=== PATIENT | female | born 1955 | race Caucasian/White ===

== ENCOUNTER → 2017-01-31 | Outpatient (CLI) | payer BC ==
[~2017-01-31] MED LIST: BACTRIM DS 8001 TAB PO; HYDROXYZINE 25M25 MG PO; IMITREX100 MG PO; PHENERGAN 25MG.25 M1 PO; PYRIDIUM 200MG200 MG PO; VIVELLE-DO0.1 MG/24 TD
[2017-01-31 10:05] LABS: HEMOGLOBIN 14.2 g/dL (12.2-16.2); LYMPH # 1.5 K/mm3 (0.7-4.5); LYMPH % 24.1 % (10-50.0)
[2017-01-31 11:49] LABS: BUN 14 mg/dL (7-18); GFR (ESTIMATED) 64 ML/MIN (59-)
[2017-02-01 08:41] LABS: Vitamin D, 25-Hydroxy 16.3 ng/mL (30.0-100.0)
[2017-02-01 16:36] LABS: Calcium, Ionized 5.4 mg/dL (4.5-5.6)
== END ==
LOC: LAB 09:45
PROVIDERS: Internal Medicine Adolescent Medicine
DX: E21.5 Disorder of parathyroid gland, unspecified (principal); E78.5 Hyperlipidemia, unspecified; R53.83 Other fatigue

== ENCOUNTER → 2017-02-10 | Outpatient (CLI) | payer BC ==
--- NOTE | 2017-02-13 08:57 | RADIOLOGY REPORT PS360 ---
DIG MAMM-SCREEN CAPRICE W/CAD CAD Screening COMPARISON: Digital mammograms 12/04/2015 and 07/29/2014 INDICATION: There is a history of breast cancer in patient's mother diagnosed after menopause. TECHNIQUE: Standard CC and MLO images were obtained. R2 CAD reviewed. FINDINGS: The breasts are closed primarily of fat with scattered fiber glandular densities seen throughout each breast basically stable and unchanged from the previous studies. There is a mole marker near the inframammary fold left breast. There are a couple of tiny benign-appearing calcifications there is no suspicious lesion and there are no suspicious microcalcifications. There are fatty replaced nodes in both axilla. Right breast. IMPRESSION: Fatty type breast parenchyma with no suspicious lesion seen recommend yearly follow-up BI-RADS CATEGORY: 2_Benign RECOMMENDED FOLLOWUP: 12M 12 MONTH FOLLOW-UP (A letter has been sent to the patient regarding results of the study.)
== END ==
LOC: RAD 02-07 09:30
DX: Z12.31 Encounter for screening mammogram for malignant neoplasm of breast (principal)
CPT/HCPCS: G0202